=== PATIENT | female | born 1955 | race Asian ===

== ENCOUNTER → 2019-11-18 | Outpatient (CLI) | payer BC ==
--- NOTE | 2019-11-18 13:04 | FL ---
EXAMINATION TYPE: FL UGI air DATE OF EXAM: 11/18/2019 COMPARISON: None HISTORY: Cough short of breath intermittent chest pain TECHNIQUE: Double air-contrast technique is utilized to evaluate the upper GI tract. FINDINGS: The esophagus dilates to normal caliber has normal contour to the gastroesophageal junction . Gastroesophageal junction opens to normal caliber. Gastroesophageal reflux into the distal esophagu s was evident during the exam. A few tertiary contractions observed during the exam. Fundus body and antrum of the stomach as visualized are normal. No intraluminal or extramural defects are evident. Barium readily empties into the normally positioned duodenal cap and sweep. Small secon d portion duodenal diverticulum may be present. IMPRESSION: 1. Gastroesophageal reflux. 2. Some mild presbyesophagus may be present. 3. Small duodenal diverticulum second portion
== END | disposition home or self-care (01) ==
LOC: RADUSWWP 07:52
PROVIDERS: ATTEND Family Medicine
DX: K21.9 Gastro-esophageal reflux disease without esophagitis (principal); K22.8 Other specified diseases of esophagus; K57.10 Diverticulosis of small intestine without perforation or abscess without bleeding
CPT/HCPCS: 74246

== ENCOUNTER → 2020-02-28 | Outpatient (CLI) | payer BC ==
--- NOTE | 2020-02-28 10:25 | US ---
EXAMINATION TYPE: US liver DATE OF EXAM: 02/28/2020 COMPARISON: NONE CLINICAL HISTORY: R68.89 Abnormal Hep A levels. EXAM MEASUREMENTS: Liver Length: 13.6 cm Gallbladder Wall: 0.2 cm CBD: 0.3 cm Right Kidney: 11.3 x 4.3 x 3.8 cm Pancreas: wnl Liver: Multiple cystic areas visualized, largest measuring 2.0 cm Gallbladder: wnl Evidence for sonographic Clemens's sign: No CBD: wnl Right Kidney: No hydronephrosis or masses seen IMPRESSION: Hepatic cysts otherwise unremarkable study.
== END | disposition home or self-care (01) ==
LOC: RADUSWWP 09:41
PROVIDERS: ATTEND Family Medicine
DX: K76.89 Other specified diseases of liver (principal)
CPT/HCPCS: 76705

== ENCOUNTER → 2021-11-16 | Day surgery (SDC) | payer BC, MEDICARE ==
[~2021-11-16] MED LIST: LACTATED RINGERS 1,000 ML IV SCH; LIDOCAINE 2% INJ 20 MG/ML (2 ML VIAL) ONE; PROPOFOL 10 MG/ML 20 ML VIAL IV ONE
[2021-11-16 07:23] VITALS: TEMP 97
--- NOTE | 2021-11-16 08:41 | P.PCN ---
Date of Procedure: 11/16/21 Procedure(s) Performed: BRIEF HISTORY: Patient is a 66-year-old pleasant female scheduled for an elective colonoscopy as a part of a for colon cancer and family history of colon cancer. Her sister was diagnosed with colon cancer at age 52. PROCEDURE PERFORMED: Colonoscopy with biopsy. PREOPERATIVE DIAGNOSIS: Screening for colon cancer and family history of colon cancer. IV sedation per Anesthesia. PROCEDURE: After informed consent was obtained, the patient, was brought into the endoscopy unit. IV sedation was administered by Anesthesia under continuous monitoring. Digital rectal examination was normal. Initially the Olympus CF-160 flexible video colonoscope was then inserted in the rectum, gradually advanced into the cecum without any difficulty. Careful examination was performed as the scope was gradually being withdrawn. Ileocecal valve and the appendiceal orifice were visualized and appeared normal. Prep was excellent. Mucosa of the cecum, ascending colon, transverse colon, descending colon, sigmoid colon, and rectum appeared normal. Distal sigmoid colon there was a 5 mm polyp that was removed by cold biopsy. Retroflexion was performed in the rectum and no lesions were seen. The patient tolerated the procedure well. IMPRESSION: 5 mm distal sigmoid colon polyp status post cold biopsy Rest of the colon appeared normal RECOMMENDATIONS: Findings of this examination were discussed with the patient is a family.. She was advised to follow with the biopsy results and have a repeat colonoscopy in 5 years from now because of family history of colon cancer
[2021-11-16 09:11] VITALS: RESP 18
[2021-11-16 09:32] VITALS: BP 132/71; PULSE 62
== END ==
LOC: ORWHC2ENDO 06:51
PROVIDERS: ATTEND Internal Medicine Gastroenterology
DX: D12.5 Benign neoplasm of sigmoid colon (principal); Z80.0 Family history of malignant neoplasm of digestive organs; G25.81 Restless legs syndrome; Z79.899 Other long term (current) drug therapy
CPT/HCPCS: 88305; 45380; J2704; J2001